=== PATIENT | female | born 1980 | race Two or more races ===

== ENCOUNTER 2022-03-12 18:01 | Emergency (ER) | payer OTHER ==
[~2022-03-12] VITALS: Ht 165.1 cm; Wt 90.7 kg
[2022-03-12] MEDS ORDERED: IRON325 MG (18:58)
== END 2022-03-12 22:33 | disposition home or self-care (01) ==
LOC: ER 18:01
DX: J15.7 Pneumonia due to Mycoplasma pneumoniae (principal); Z20.822 Contact with and (suspected) exposure to COVID-19

== ENCOUNTER 2022-04-20 10:00 | Inpatient (IN) | payer OTHER ==
[~2022-04-20] VITALS: Ht 165.1 cm; Wt 96.2 kg
[~2022-04-20 10:00] MED LIST: IRON325 MG
[2022-04-26] MEDS ORDERED: FLONASE16 GM (11:14)
[2022-04-29] MEDS ORDERED: SIMETHICONE80 MG PO (10:53)
[2022-04-29] MEDS ORDERED: COLACE100 MG PO (10:53)
[2022-04-29] MEDS ORDERED: IBU800 MG PO (10:53)
[2022-04-29] MEDS ORDERED: PERCOCET 5-3251 EACH PO (10:53)
== END 2022-04-29 12:26 | disposition home or self-care (01) | DRG 743 ==
LOC: O/R 04-26 05:43 → OB/GYN 04-26 10:00 → SURG 04-26 10:00 → OB/GYN 04-26 11:58
PROVIDERS: ADMIT Obstetrics & Gynecology; ATTEND Obstetrics & Gynecology
PROC: 0UT70ZZ Resection of Bilateral Fallopian Tubes, Open Approach (ICD-10-PCS; 2022-04-26)
PROC: 0TJB8ZZ Inspection of Bladder, Via Natural or Artificial Opening Endoscopic (ICD-10-PCS; 2022-04-26)
PROC: 0UT90ZZ Resection of Uterus, Open Approach (ICD-10-PCS; principal; 2022-04-26 10:00)
DX: D25.1 Intramural leiomyoma of uterus (principal); D25.0 Submucous leiomyoma of uterus; D25.2 Subserosal leiomyoma of uterus; N72 Inflammatory disease of cervix uteri; Z20.822 Contact with and (suspected) exposure to COVID-19